=== PATIENT | male | born 1975 | race Caucasian/White ===

== ENCOUNTER 2025-01-06 18:20 | Emergency (ER) | payer OTHER, SELFPAY ==
--- NOTE | ~2025-01-06 | CT_ITS ---
EXAMINATION: CT LE RT w con DATE: 01/07/2025 05:19 INDICATION: Right knee fracture. TECHNIQUE: Computed tomography (CT) of the right knee was performed with 100 mL Omnipaque 350 intravenous contrast. Automated exposure control and iterative reconstruction technique were employed. The dose-length product was 788.50 mGy-cm. COMPARISON: Right knee radiographs 01/06/2025 FINDINGS: There is varus angulation at the knee. No fracture. There is severe osteoarthritis of medial compartment and moderate osteoarthritis of lateral and patellofemoral compartments. There is a moderate-sized knee joint effusion with synovitis. Varicose veins are noted. IMPRESSION: 1. No fracture. 2. Severe right knee osteoarthritis. 3. Moderate-sized knee joint effusion with synovitis. Reviewed, dictated and finalized at location E.
--- NOTE | ~2025-01-06 | XR_ITS ---
XR knee RT 3V INDICATION: pain, INJURY X2 MONTHS AGO PROGRESSIVELY GETTING WORSE . COMPARISON: None. FINDINGS: Frontal, lateral and oblique views of the right knee demonstrate nondisplaced fractures through the lateral femoral condyle. Large suprapatellar joint effusion is noted. IMPRESSION: Acute nondisplaced fracture of the lateral femoral condyle. Reviewed, dictated and finalized at location S.
[2025-01-06 18:25] VITALS: BP 196/83; PULSE 78; RESP 16; TEMP 37.1; O2SAT 97
[2025-01-06] MEDS: HYDROcodone/acetaminophen (*CRX) 5-325 MG TABLET 1 TAB PO (21:26)
--- NOTE | 2025-01-07 00:22 | ED_ITS ---
HPI - General Adult General Chief complaint: Extremity Injury, Lower Stated complaint: R. knee pain Time Seen by Provider: 01/06/25 20:45 History of Present Illness HPI narrative: This is a 49-year-old male presenting with knee pain and swelling. Patient said that he fell 3 months ago injuring his knee. It got better over time but it has never truly return to its baseline. Starting today he developed severe pain and significant swelling. He denies fevers. He has not had another injury, fall or twist. He has taken Aleve with minimal relief. Related Data Allergies Allergy/AdvReac Type Severity Reaction Status Date / Time No Known Allergies Allergy Verified 01/06/25 18:22 Exam 2 Narrative: APPEARANCE: No apparent distress. Head: atraumatic. EYES: EOMI, NOSE: Atraumatic NECK: Trachea midline RESPIRATORY: No increased rate of breathing CARDIOVASCULAR: RRR, ABDOMINAL: Non-distended MUSCULOSKELETAl: Right knee without erythema, minimal warmth, and has a large effusion NEURO: Alert. Moving 4/4 extremities SKIN:: Warm, dry. Normal color PSYCHIATRIC: Normal affect Course Vital Signs Vital signs: Vital Signs Temperature 98.7 F 01/06/25 18:25 Pulse Rate 78 01/06/25 18:25 Respiratory Rate 16 01/06/25 18:25 Blood Pressure 196/83 H 01/06/25 18:25 Pulse Oximetry 97 01/06/25 18:25 Oxygen Delivery Room Air 01/06/25 18:25 Temperature 98.7 F 01/06/25 18:25 Pulse Rate 78 01/06/25 18:25 Respiratory Rate 16 01/06/25 18:25 Blood Pressure 196/83 H 01/06/25 18:25 Pulse Oximetry 97 01/06/25 18:25 Oxygen Delivery Room Air 01/06/25 18:25 Procedures Joint Aspiration/Injection Joint Asp./Inject. 1: Joint Aspiration Date: 01/07/25 Time Out Performed: Yes Side of body: right Joint Aspirated: elbow Ultrasound Guidance: No Skin Prep: Povidone-Iodine1% (w/ sterile drape) Local Anesthetic: bupivacaine 0.25% Amount of anesthesia used (mL): 10 Needle Size Used: 18G (Spinal needle) Fluid Obtained: turbid Total fluid obtained (mL): 120 Patient Tolerated Procedure: well (Initially I used a 1-1/4 inch needle which was not large enough to reach the knee capsule. A switched to an 18 gauge spinal needle and was able to drain 120 cc of turbid fluid from the patient's knee.) Medical Decision Making MDM Narrative Medical decision making narrative: -Course: 49-year-old male presenting with 3 months of knee pain that became acutely worse today. Patient has a large effusion on exam. X-ray of the knee showed a nondisplaced fracture through the lateral epicondyle with a large suprapatellar effusion. Diagnostic and therapeutic joint aspiration was performed under sterile conditions. Joint aspirate returned with 49,000 nucleated cells and 76% neutrophils. G stain negative for organisms but showed numerous white blood cells. Cultures are pending. No crystals. Case was discussed with Dr. Messer (ortho.) He requested inflammatory markers and a CT of the joint which have been ordered. White count was normal. Sed rate was just above normal. CRP was 4.8. CT scan showed moderate-sized joint effusion with synovitis. NO fracture was seen on CT Case was discussed with Dr. Messer and he thinks this is highly unlikely to be a septic arthritis. He would like the patient discharged on Keflex will see him tomorrow in clinic for close follow-up. This was discussed with the patient he is agreeable to plan. -DDX includes but is not limited to: Traumatic effusion, inflammatory arthritis, gout, pseudogout, septic knee Vital Signs Vital Signs: Vital Signs Temperature 98.7 F 01/06/25 18:25 Pulse Rate 78 01/06/25 18:25 Respiratory Rate 16 01/06/25 18:25 Blood Pressure 196/83 H 01/06/25 18:25 Pulse Oximetry 97 01/06/25 18:25 Oxygen Delivery Room Air 01/06/25 18:25 Temperature 98.7 F 01/06/25 18:25 Pulse Rate 78 01/06/25 18:25 Respiratory Rate 16 01/06/25 18:25 Blood Pressure 196/83 H 01/06/25 18:25 Pulse Oximetry 97 01/06/25 18:25 Oxygen Delivery Room Air 01/06/25 18:25 Lab Data 01/07/25 04:20 01/07/25 04:20 Labs: Lab Results 01/06/25 01/07/25 Range/Units 23:56 04:20 WBC 9.1 (4.5-10.0) K/mm3 RBC 4.52 L (4.6-6.20) M/mm3 Hgb 14.4 (14.0-18.0) g/dL Hct 42.3 (42.0-52.0) % MCV 93.6 (80-100) fl MCH 31.9 (26-34) pg MCHC 34.0 (32-36) g/dl RDW 12.4 (11.5-14.5) % Plt Count 188 (150-375) k/mm3 MPV 10.1 (7.4-10.4) fl Immature Gran % (Auto) 0.3 (0-0.5) % Neut % (Auto) 66.1 (45.5-73.1) % Lymph % (Auto) 22.2 (18.3-44.2) % [place] % (Auto) 9.7 H (2.6-8.5) % Eos % (Auto) 1.5 (0-4.4) % Baso % (Auto) 0.2 (0.2-1.2) % Lymph # (Auto) 2.02 (0.9-3.2) K/mm3 [place] # (Auto) 0.9 H (0.1-0.6) K/mm3 Eos # (Auto) 0.1 (0-0.3) K/mm3 Baso # (Auto) 0.0 (0.0-0.1) K/mm3 Abs Immat Gran (auto) 0.03 (0.00-0.031) K/mm3 Absolute Neuts (auto) 6.0 (1.3-6.7) K/mm3 Absolute Nucleated RBC 0.000 (0.0-0.012) K/mm3 Nucleated RBC % 0.0 (0.0-0.2) % ESR 21 H (0-20) mm/hr Sodium 134 L (137-145) mmol/L Potassium 3.6 (3.4-5.0) mmol/L Chloride 99 (98-107) mmol/L Carbon Dioxide 24 (22-30) mmol/L Anion Gap 11 (4-12) mmol/L BUN 18 (9-20) mg/dL Creatinine 0.88 (0.7-1.3) mg/dL Estim Creat Clear Calc 130 ml/min Estimated GFR > 60 (59 - ) Glucose 152 H (65-110) mg/dL Calcium 9.0 (8.4-10.2) mg/dL Total Bilirubin 1.6 H (0.2-1.3) mg/dL AST 35 (17-59) U/L ALT 34 (6-50) U/L Alkaline Phosphatase 89 (38-126) U/L C-Reactive Protein 4.8 H (<1.0) mg/dL Total Protein 8.9 H (6.3-8.2) g/dL Albumin 4.4 (3.5-5.1) g/dL Fluid Glucose Pending Fluid Total Protein Pending Synovial Source Rt knee syn fluid Synovial Color Yellow (Colorless) Synovial Appearance Cloudy A (Clear) Synovial RBC 71724 H (0-0) /uL Synovial Nuc Cells 62718 H (0-200) /uL Synovial Neutrophils 76 H (0-25) % Synovial Lymphocytes 14 % Synovial Monocytes 2 % Synovial Macrophages 8 % Synovial Other Cells 0 % Synovial Crystals None seen (None Seen) Synovial Glucose Cancelled Synovial Total Protein Cancelled Discharge Plan Discharge Clinical Impression: Effusion of knee Patient Disposition: Home Condition: Stable Instructions: Antibiotic Form, Swollen Knee Joint (ED) Additional Instructions: You were seen in the emergency department for a swollen knee. Your knee was tapped and laboratory studies have been sent. These will be followed by Dr. Messer, an orthopedist. Please call his clinic when you leave here today to arrange follow-up for tomorrow in his clinic. Use Motrin and Tylenol for pain. If you develop fevers, increased pain in the joint, increased swelling or warmth please return to the ER immediately. Patient Language: Japanese Prescriptions: New cephalexin 500 mg capsule 500 mg PO Q12H Qty: 14 0RF acetaminophen 500 mg tablet 1,000 mg PO TID PRN (Reason: nile) 7 Days Qty: 42 0RF ibuprofen 800 mg tablet 800 mg PO TID PRN (Reason: pain) 7 Days Qty: 21 0RF Follow-up/Referrals: Sandra,MD Carli [Primary Care Provider, Unknown] Brian Messer MD [Physician, Orthopedics] - 1 Day
[2025-01-07 02:49] LABS: Source Synovial Fluid Rt Knee Syn Fluid
[2025-01-07 02:50] LABS: Color Synovial Fluid Yellow (Colorless); Lymphocytes Synovial Fluid 14 %; Macrophages Synovial Fluid 8 %; Monocytes Synovial Fluid 2 %; Neutrophils Synovial Fluid 76 % (0-25); Nucleated Cell Synovial Fluid 49270 /uL (0-200); Other Cells Synovial Fluid 0 %; RBC Synovial Fluid 10000 /uL (0-0)
[2025-01-07 04:31] LABS: Hematocrit 42.3 % (42.0-52.0); Hemoglobin 14.4 g/dL (14.0-18.0); Immature Granulocyte Percent A 0.3 % (0-0.5); Lymphocytes Absolute Auto 2.02 K/mm3 (0.9-3.2); Mean Corpuscular HGB Conc 34.0 g/dl (32-36); Mean Corpuscular Hemoglobin 31.9 pg (26-34); Mean Corpuscular Volume 93.6 fl (80-100); Nucleated Red Blood Cells Absolute Auto 0.000 K/mm3 (0.0-0.012); Nucleated Red Blood Cells Perc 0.0 % (0.0-0.2); Platelet Count Result 188 k/mm3 (150-375); Red Blood Count 4.52 M/mm3 (4.6-6.20); White Blood Count 9.1 K/mm3 (4.5-10.0)
[2025-01-07 04:46] LABS: Alanine Aminotransferase 34 U/L (6-50); Albumin Level 4.4 g/dL (3.5-5.1); Alkaline Phosphatase 89 U/L (38-126); Anion Gap 11 mmol/L (4-12); Aspartate Amino Transferase 35 U/L (17-59); Bilirubin,Total 1.6 mg/dL (0.2-1.3); Blood Urea Nitrogen 18 mg/dL (9-20); CRP 4.8 mg/dL (<1.0); Calcium 9.0 mg/dL (8.4-10.2); Carbon Dioxide 24 mmol/L (22-30); Chloride 99 mmol/L (98-107); Estimated CRCL calculation 130 ml/min; Estimated Glomerular Filt Rate > 60; Glucose 152 mg/dL (65-110); Potassium 3.6 mmol/L (3.4-5.0); Sodium 134 mmol/L (137-145); Total Protein 8.9 g/dL (6.3-8.2)
[2025-01-07 07:09] VITALS: BP 154/76; PULSE 88; RESP 18; O2SAT 100
[2025-01-08 14:09] LABS: Glucose, Body Fluid 14 mg/dL (.)
== END 2025-01-07 07:10 | disposition home or self-care (01) ==
PROVIDERS: Emergency Provider Emergency Medicine; PCP Internal Medicine
DX: M25.461 Effusion, right knee (principal)
CPT/HCPCS: 20610; 36415; 73562; 73701; 80053; 82945; 84157; 85025; 85652; 86140; 87040; 87070; 87075; 87205; 89051; 89060; 96374; 99284; A9270; J0690; Q9967